=== PATIENT | male | born 1960 | race Caucasian/White ===

== ENCOUNTER 2024-07-06 05:48 | Day surgery (SDC) | payer OTHER, MEDICAID ==
[~2024-07-06] VITALS: Ht 185.4 cm; Wt 100.0 kg
[~2024-07-06 05:48] MED LIST: KETOROLAC TROMETHAMINE 0.5% 5 ML OPHTHALMIC SOLUTION ONE; MOXIFLOXACIN HCL 0.5% 3 ML OPHTHALMIC SOLUTION ONE; PHENYLEPHRINE HCL 2.5% 2 ML OPHTHALMIC SOLUTION ONE; RINGERS SOLUTION,LACTATED 500 ML IV ONE; TROPICAMIDE 1% 2 ML OPHTHALMIC SOLUTION ONE
[2024-07-06] MEDS ORDERED: CHONDR SULF A SOD/HYALURONATE 1.05 ML KIT IO ONE (05:49)
[2024-07-06] MEDS ORDERED: FentaNYL CITRATE PF 100 MCG/2 ML VIAL ONE (05:53)
[2024-07-06] MEDS ORDERED: MIDAZOLAM HCL 2 MG/2 ML VIAL ONE (05:53)
[2024-07-06] MEDS: PHENYLEPHRINE HCL 2.5% 2 ML OPHTHALMIC SOLUTION OD SCH (06:29)
[2024-07-06] MEDS: TROPICAMIDE 1% 2 ML OPHTHALMIC SOLUTION OD SCH (06:29)
[2024-07-06] MEDS: MOXIFLOXACIN HCL 0.5% 3 ML OPHTHALMIC SOLUTION OD SCH (06:29)
[2024-07-06] MEDS: KETOROLAC TROMETHAMINE 0.5% 5 ML OPHTHALMIC SOLUTION OD SCH (06:30)
[2024-07-06] MEDS ORDERED: HYDR25TA2 PO (07:21)
[2024-07-06] MEDS ORDERED: LACT10SO85 PO (07:21)
[2024-07-06] MEDS ORDERED: FERR325T27 PO (07:21)
[2024-07-06] MEDS ORDERED: SULF500EC PO (07:21)
[2024-07-06] MEDS ORDERED: QUET25TA PO (07:21)
[2024-07-06] MEDS ORDERED: AMLO-258 PO (07:21)
[2024-07-06] MEDS ORDERED: HYDR-4584 PO (07:21)
[2024-07-06] MEDS ORDERED: LEVO25TA9 PO (07:21)
[2024-07-06] MEDS ORDERED: RIFAX550 PO (07:21)
[2024-07-06] MEDS ORDERED: PANT-31 PO (07:21)
[2024-07-06] MEDS ORDERED: ATOR20TA PO (07:21)
[2024-07-06] MEDS ORDERED: FEBU40T PO (07:21)
[2024-07-06] MEDS ORDERED: POTA-206 PO (07:21)
[2024-07-06] MEDS ORDERED: CARV3 PO (07:21)
[2024-07-06] MEDS ORDERED: CHOL25TA4 PO (07:21)
[2024-07-06] MEDS: RINGERS SOLUTION,LACTATED 500 ML IV ONE (07:29)
[2024-07-06] MEDS: TETRACAINE HCL/PF 0.5% 4 ML OPHTHALMIC SOLUTION ONE (08:00)
[2024-07-06] MEDS: BALANCED SALT 15 ML OPHTHALMIC IRRIG.SOLN ONE (08:10)
[2024-07-06] MEDS: EPINEPHrine 1:1,000 [1 MG/ML] VIAL ONE (08:11)
[2024-07-06] MEDS: LIDOCAINE/PF 1% 2 ML VIAL ONE (08:11)
[2024-07-06] MEDS: POVIDONE-IODINE 5% 30 ML OPHTHALMIC SOLUTION ONE (08:12)
== END 2024-07-06 12:37 | disposition home or self-care (01) ==
LOC: SURGERY 05:48
PROVIDERS: ATTEND Ophthalmology
DX: H25.11 Age-related nuclear cataract, right eye (principal); I10 Essential (primary) hypertension; I25.2 Old myocardial infarction; Z98.890 Other specified postprocedural states; Z79.899 Other long term (current) drug therapy
CPT/HCPCS: 66984; 93005; J7321; J0171; J3010; J3490; J2250; J7120; V2632